=== PATIENT | female | born 1945 | race Caucasian/White ===

== ENCOUNTER 2020-05-25 08:09 | Outpatient (CLI) | payer MEDICARE, MEDICAID | END 2020-05-25 08:10 | disposition home or self-care (01) | LOC: CSHULT 08:09 | PROVIDERS: ATTEND Family Medicine | DX: K80.20 Calculus of gallbladder without cholecystitis without obstruction (principal); K76.0 Fatty (change of) liver, not elsewhere classified | CPT/HCPCS: 76705 ==